=== PATIENT | female | born 1960 | race Caucasian/White ===

== ENCOUNTER 2017-06-02 11:31 | Observation (INO) | payer OTHER ==
[2017-05-17 11:50] VITALS: BMI 48.0
--- NOTE | 2017-05-17 12:45 | PAT Medication Instructions ---
Service Date May 17, 2017. Current Home Medication List Albuterol (Ventolin), 2 PUFFS INH PRN Calcium/Vitamin D (Os-Chris 250 With D *), 1 TAB PO QAM Cholecalciferol (Vitamin D 1000 Unit), 5,000 INTER.UNIT PO HS Cyanocobalamin (Cyanocobalamin), 1 DOSE INJ QMONTH Duloxetine Hcl (Cymbalta *), 90 MG PO HS Fluticasone Prop/Salmeterol (Advair Diskus 250/50 Mcg *), 1 PUFF INH BID Furosemide (Lasix *), 40 MG PO PRN PRN for leg swelling Hydrocodone/Acetaminophen 5MG/325MG ([place] 5MG/325MG), 2 TABLETS PO UD PRN for Pain Hydroxychloroquine Sulfate (Plaquenil), 200 MG PO BID Lisinopril (Zestril), 20 MG PO QAM Magnesium Oxide (Mag-Ox), 400 MG PO HS Metaxalone (Skelaxin), 800 MG PO TID PRN for Muscle Spasms Multivitamin (Multivitamin), 1 TAB PO QAM Omeprazole (Prilosec), 20 MG PO QAM Potassium Ext Rel (Klor-Con), 20 MEQ PO UD PRN for with lasix Ranitidine (Zantac), 150 MG PO QPM [Nasal [place]], 1 DOSE DEIDRA QAM Medication Instructions For Your Scheduled Surgery - Continue as directed: Cyanocobalamin (Cyanocobalamin), 1 DOSE INJ QMONTH - Hold the following medications the morning of surgery: Calcium/Vitamin D (Os-Chris 250 With D *), 1 TAB PO QAM Lisinopril (Zestril), 20 MG PO QAM Furosemide (Lasix *), 40 MG PO PRN PRN for leg swelling Potassium Ext Rel (Klor-Con), 20 MEQ PO UD PRN for with lasix Multivitamin (Multivitamin), 1 TAB PO QAM Metaxalone (Skelaxin), 800 MG PO TID PRN for Muscle Spasms - Take the following medications the morning of surgery with a sip of water OTHERWISE NOTHING TO EAT OR DRINK AFTER MIDNIGHT: Hydroxychloroquine Sulfate (Plaquenil), 200 MG PO BID Albuterol (Ventolin), 2 PUFFS INH PRN (use if needed; BRING TO HOSPITAL) [Nasal [place]], 1 DOSE DEIDRA QAM Omeprazole (Prilosec), 20 MG PO QAM Fluticasone Prop/Salmeterol (Advair Diskus 250/50 Mcg *), 1 PUFF INH BID Hydrocodone/Acetaminophen 5MG/325MG ([place] 5MG/325MG), 2 TABLETS PO UD PRN for Pain (may take if needed up to 4 hours prior to surgery if needed) - Take the following medications as scheduled the night before surgery: Hydroxychloroquine Sulfate (Plaquenil), 200 MG PO BID Albuterol (Ventolin), 2 PUFFS INH PRN Duloxetine Hcl (Cymbalta *), 90 MG PO HS Magnesium Oxide (Mag-Ox), 400 MG PO HS Ranitidine (Zantac), 150 MG PO QPM Metaxalone (Skelaxin), 800 MG PO TID PRN for Muscle Spasms Fluticasone Prop/Salmeterol (Advair Diskus 250/50 Mcg *), 1 PUFF INH BID Hydrocodone/Acetaminophen 5MG/325MG ([place] 5MG/325MG), 2 TABLETS PO UD PRN for Pain Cholecalciferol (Vitamin D 1000 Unit), 5,000 INTER.UNIT PO HS If you have any questions please call us at [phone] or [phone] or [phone]
[2017-05-17 13:24] LABS: BASO % 1.4 %; BASO ABS # 0.06 K/uL (0-0.2); COMPLETE YES; EOS % 4.8 %; HEMATOCRIT 41.8 % (37-47); LYMPH % 37.9 %; LYMPH ABS # 1.57 K/uL (1.2-3.4); MEAN CELL VOLUME 90.9 fL (80-100); MEAN CORPUSCULAR HEMOGLOBIN 30.7 pg (25-34); MEAN CORPUSCULAR HGB CONC 33.7 g/dl (32-36); MEAN PLATELET VOLUME 8.8 fL (7.4-10.4); MONO % 9.2 %; NEUT % 46.7 %; PLATELET COUNT 250 K/uL (130-400); WHITE BLOOD COUNT 4.14 K/uL (4.8-10.8)
[2017-05-17 13:41] LABS: URINE APPEARANCE CLEAR (CLEAR); URINE BILIRUBIN NEG (NEG); URINE COLOR YELLOW; URINE NITRITE NEG (NEG); URINE PH 6.5 (4.5-7.5); URINE SPECIFIC GRAVITY 1.013 (1.000-1.030); UROBILINOGEN NEG (NEG)
[2017-05-17 13:45] LABS: MANUAL MICROSCOPIC REQUIRED? NO; REVIEW REQ? NO
[2017-05-17 14:33] LABS: BUN/CREATININE RATIO 17.2 (10-20); CALCIUM 9.2 mg/dl (8.5-10.1); CREATININE 0.69 mg/dl (0.60-1.20); POTASSIUM 4.5 mmol/L (3.5-5.1)
[2017-06-02] VITALS (8 sets, daily range): BP systolic 115–147; BP diastolic 69–74; PULSE 86–101; TEMP 36.4–36.8; O2SAT 92–96; Ht 160 cm; Wt 120.9 kg
[~2017-06-02] VITALS: Ht 160 cm; Wt 120.9 kg
[~2017-06-02 11:31] MED LIST: ADVIN25050 INH; ALBUAER2 INH; CEFAZOLIN 3000 MG/65 ML D5W IV SCH; CHOL100027 PO; CYM60 PO; CYNI1000 INJ; HYDR-5688 PO; HYDR200T5 PO; LACTATED RINGER'S 1000ML 1,000 ML IV SCH; LISI-725 PO; LSX20 PO; MAGN400T6 PO; META1TAB22 PO; MULT-506 PO; NASAL SPRAY NAE; OMEP20CA59 PO; OSCD250 PO; POTA20TA16 PO; ZNTT/150 PO
[2017-06-02] MEDS ORDERED: MIDAZOLAM HCL 1 MG/ML 2ML VIAL ONE (13:13)
[2017-06-02] MEDS ORDERED: FENTANYL CITRATE INJ 50 MCG/1 ML 2 ML VIAL ONE (13:14)
--- NOTE | 2017-06-02 13:18 | History & Physical Bridge Note ---
H&P Re-Evaluation Bridge Note: I have examined the patient, reviewed the History & Physical and in the interval since the performance of the History & Physical I have noted the following changes of clinical significance: No changes noted
--- NOTE | 2017-06-02 13:19 | History and Physical ---
History & Physical Date Jun 02, 2017. Chief Complaint Left SI joint pain History of Present Illness The patient is a 56 year old female with complaints of Additional History Hepatic Disease: No Endocrine Disorder: No Kidney Disease: No Hypertension: Yes Heart Disease: No Bleeding Tendencies: No Infectious Diseases: No Allergies Coded Allergies: Cefuroxime (Verified Allergy, Intermediate, HALLUCINATIONS, 05/17/17) Codeine (Verified Adverse Reaction, Mild, NAUSEA AND VOMITING, 05/17/17) Eucalyptus Oil (Verified Adverse Reaction, Mild, NAUSEA AND VOMITING, ) Propoxyphene (Verified Adverse Reaction, Mild, NAUSEA AND VOMITING, 05/17/17 ) Home Medications Scheduled Albuterol (Ventolin), 2 PUFFS INH PRN Calcium/Vitamin D (Os-Chris 250 With D *), 1 TAB PO QAM Cholecalciferol (Vitamin D 1000 Unit), 5,000 INTER.UNIT PO HS Cyanocobalamin (Cyanocobalamin), 1 DOSE INJ QMONTH Duloxetine Hcl (Cymbalta *), 90 MG PO HS Fluticasone Prop/Salmeterol (Advair Diskus 250/50 Mcg *), 1 PUFF INH BID Hydroxychloroquine Sulfate (Plaquenil), 200 MG PO BID Lisinopril (Zestril), 20 MG PO QAM Magnesium Oxide (Mag-Ox), 400 MG PO HS Multivitamin (Multivitamin), 1 TAB PO QAM Omeprazole (Prilosec), 20 MG PO QAM Ranitidine (Zantac), 150 MG PO QPM [Nasal [place]], 1 DOSE DEIDRA QAM Scheduled PRN Furosemide (Lasix *), 40 MG PO PRN PRN for leg swelling Hydrocodone/Acetaminophen 5MG/325MG ([place] 5MG/325MG), 2 TABLETS PO UD PRN for Pain Metaxalone (Skelaxin), 800 MG PO TID PRN for Muscle Spasms Potassium Ext Rel (Klor-Con), 20 MEQ PO UD PRN for with lasix Physical Examination Skin: warm/dry, no rash Eyes: normal inspection, EOMI, sclerae normal ENT: normal ENT inspection, pharynx normal Head: normocephalic, atraumatic Neck: supple, no adenopathy, trachea midline Respiratory/Chest: lungs clear, normal breath sounds, no respiratory distress Cardiovascular: regular rate, rhythm, no edema, no murmur Abdomen / GI: normal bowel sounds, non tender Back: normal inspection Extremities: normal inspection, normal range of motion Neurologic/Psych: no motor/sensory deficits, alert, normal reflexes, oriented x 3 Diagnosis Left sacroiliitis Plan of Treatment Left SI joint fusion
[2017-06-02] MEDS ORDERED: BUPIVACAINE/EPINEPHRINE 0.5% MPF 1:200,000 10 ML VIAL ONE (13:37)
[2017-06-02] MEDS ORDERED: BACITRACIN 50000 UNIT VIAL ONE (13:37)
[2017-06-02] MEDS ORDERED: SODIUM CHLORIDE 0.9% PF 50 ML VIAL ONE (13:58)
[2017-06-02] MEDS ORDERED: HYDROmorphone INJ 2 MG/ML SYR/VIAL ONE ×2 (14:06→15:21)
[2017-06-02] MEDS ORDERED: EpHEDrine SULFATE 50MG/5ML SYR ONE (14:46)
[2017-06-02] MEDS ORDERED: LIDOCAINE HCL 2% 2 ML VIAL (20MG/ML) ONE (14:46)
[2017-06-02] MEDS ORDERED: GLYCOPYRROLATE INJ 0.2 MG/ML VIAL ONE (14:46)
[2017-06-02] MEDS ORDERED: NEOSTIGMINE METHYLSULFATE 1 MG/ML 10ML VIAL ONE (14:46)
[2017-06-02] MEDS ORDERED: ONDANSETRON INJ 2 MG/ML 2 ML VIAL ONE (14:46)
[2017-06-02] MEDS ORDERED: PROPOFOL IV EMULSION 10 MG/ML 20 ML VIAL IV ONE (14:46)
[2017-06-02] MEDS ORDERED: LARYING-O-JET KIT (LTA) ONE ×2 (14:46)
[2017-06-02] MEDS ORDERED: DEXAMETHASONE SOD INJ 4 MG/ML VIAL ONE (14:46)
[2017-06-02] MEDS ORDERED: PHENYLEPHRINE HCL INJ 10 MG/ML VIAL ONE (14:46)
[2017-06-02] MEDS ORDERED: ROCURONIUM BROMIDE 10 MG/ML 5 ML VIAL IV ONE (14:46)
--- NOTE | 2017-06-02 15:13 | DIAGNOSTIC IMAGING REPORT ---
Radiology [facility] CLINICAL HISTORY: 56 years-old Female presenting with LEFT SACROILIAC JOINT FUSION. TECHNIQUE: 3 fluoroscopic spot image(s) obtained as part of an intraoperative procedure. COMPARISON: None. FINDINGS/IMPRESSION: Fixation across the right sacroiliac joint and posterior bilateral transpedicular screw and nicol fixation spanning the lower lumbar spine likely into the upper sacrum noted. An interbody spacer is also present. Please see surgical report for further details. Fluoroscopy dosage (mGy): Not available. Fluoroscopy time: 2 minutes and 21 seconds.. Number of fluoroscopic spot images: 3. Electronically signed by: Kristopher Suarez M.D. 06/02/2017 3:12 PM Dictated Date/Time: 06/02/2017 3:11 PM
--- NOTE | 2017-06-02 15:14 | [facility] Operative Report ---
Operative Report Operative Date Jun 02, 2017. Pre-Operative Diagnosis Left Sacroiliitis Post-Operative Diagnosis Left Sacroiliitis Procedure(s) Performed Left Sacroiliac Joint Fusion Surgeon Dr. Vo Corporate Counselor Surgeon(s) none Estimated Blood Loss 20 cc Findings None Specimens none per surgeon Description of Procedure Patient was met with preoperatively case discussed all questions are dressed. After informed consent obtained patient was taken back to the operative suite and after undergoing intubation placed in a prone position on the Manuel table chest pads and hip bolsters. The left upper buttock lateral thigh was prepped and draped nostril fashion. With the assistance of fluoroscopy in AP and lateral planes we identified the left SI joint. A 3 cm incision was placed along the posterior slope of the sacrum along the left upper buttock. Sharp dissection was performed to the skin. Then using K wire verified our position the proximal aspect of the SI joint using inlet outlet and lateral views. The K wire was passed across the SI joint. We then dilated the tissue to allow passage of a slotted drill. We then drilled across the SI joint. We measured a 45 mm screw. A 45 mm DIAZ-coated slotted screw filled with Wendy and bone shavings was placed across the guidewire across the SI joint. After fixation used the operative guide to pass a second guidewire distal to the proximal screw. Again verifying our position and all views. Dilators were once again a used for the soft tissue. A 40 mm screw was measured. We drilled across the SI joint and placed a 40 mm DIAZ-coated screw slotted in filled with Wendy and local bone shavings. This also demonstrated excellent fixation. Using the operative guide I placed 1 last distal screw across SI joint. This screw measured a 35 mm screw was again filled with Wendy and local bone shavings. Again I appreciate excellent fixation into the bone. After this is completed incision was copiously irrigated closed with subcutaneous Vicryl and Monocryl for final skin closure. Sterile dressings placed. Patient we can take PACU stable condition. I attest to the content of the Intraoperative Record and any orders documented therein. Any exceptions are noted below.
[2017-06-02] MEDS ORDERED: ACETAMINOPHEN 325 MG TAB PO PRN (15:15)
[2017-06-02] MEDS ORDERED: LORAZEPAM 1 MG TAB PO PRN (15:15)
[2017-06-02] MEDS ORDERED: PHENYLEPHRINE 100MCG/ML 5ML SYR IV PRN (15:15)
[2017-06-02] MEDS ORDERED: ACETAMINOPHEN 500 MG TAB PO PRN (15:15)
[2017-06-02] MEDS ORDERED: ATROPINE SULFATE 0.1 MG/ML 5ML SYR IV PRN (15:15)
[2017-06-02] MEDS ORDERED: HYDROmorphone INJ 2 MG/ML SYR/VIAL IV PRN ×2 (15:15→18:15)
[2017-06-02] MEDS ORDERED: MAGNESIUM HYDROXIDE SUSP 30 ML UDC PO PRN (15:15)
[2017-06-02] MEDS ORDERED: ONDANSETRON INJ 2 MG/ML 2 ML VIAL IV PRN ×2 (15:15)
[2017-06-02] MEDS ORDERED: POTASSIUM CHLORIDE 20 MEQ TABCR PO PRN (15:15)
[2017-06-02] MEDS ORDERED: DO NOT ADMINISTER PNEUMOCOCCAL VACCINE PRN ×2 (15:15)
[2017-06-02] MEDS ORDERED: LORAZEPAM INJ 1 MG in SYRINGE 0 ML IV PRN (15:15)
[2017-06-02] MEDS ORDERED: DO NOT ADMINISTER FLU VACCINE PRN ×3 (15:15)
[2017-06-02] MEDS ORDERED: FUROSEMIDE 40 MG TAB PO PRN (15:15)
[2017-06-02] MEDS ORDERED: ALBUTEROL HFA 8 GM INHALER INH PRN (15:15)
[2017-06-02] MEDS ORDERED: EpHEDrine SULFATE INJ 50 MG/ML AMP IV PRN (15:15)
[2017-06-02] MEDS ORDERED: HYDROmorphone INJ 1 MG/ML SYR IV PRN (15:15)
[2017-06-02] MEDS ORDERED: IV FLUIDS COMPLETED PRN (15:45)
--- NOTE | 2017-06-02 16:01 | Anesthesiology Progress Note ---
Anesthesia Post Op Note Date & Time Jun 02, 2017 at 16:01 Vital Signs Pain Intensity: 5 Vital Signs Past 12 Hours Date Time Temp Pulse Resp B/P (MAP) Pulse Ox O2 Delivery O2 Flow Rate FiO2 06/02/17 15:55 36.4 90 16 120/84 93 Nasal Cannula 4 06/02/17 15:45 91 16 134/84 93 Nasal Cannula 4 06/02/17 15:35 87 16 134/80 92 Mask 10 06/02/17 15:25 92 16 133/89 92 Mask 10 06/02/17 15:17 36.5 100 16 157/97 97 Mask 10 06/02/17 12:18 36.8 86 20 141/71 95 Room Air Notes Mental Status: alert / awake / arousable, participated in evaluation Pt Amnestic to Procedure: Yes Nausea / Vomiting: adequately controlled Pain: adequately controlled Airway Patency, RR, SpO2: stable & adequate BP & HR: stable & adequate Hydration State: stable & adequate Anesthetic Complications: no major complications apparent
[2017-06-02] MEDS ORDERED: RXC5 PO (17:10)
--- NOTE | 2017-06-02 17:11 | Discharge Instructions ---
Discharge Instructions Date of Service Jun 02, 2017. Admission Reason for Admission: Sacroilitis Discharge Discharge Diagnosis / Problem: left sacralilitis Discharge Goals Goal(s): Decrease discomfort Activity Recommendations Activity Limitations: per Instructions/Follow-up section Weightbearing Status: Left toe touch . Instructions / Follow-Up Instructions / Follow-Up Please use walker when ambulating with toe-touch weightbearing to the left lower extremity. Dressing may be removed postop day 3. May shower using soap and water on the incision. Current Hospital Diet Patient's current hospital diet: Regular Diet Discharge Diet Recommended Diet: Regular Diet Procedures Procedures Performed: Left Sacroiliac Joint Fusion Pending Studies Studies pending at discharge: no Medical Emergencies . Who to Call and When: Medical Emergencies: If at any time you feel your situation is an emergency, please call 911 immediately. . Non-Emergent Contact Non-Emergency issues call your: Primary Care Provider . "Provider Documentation" section prepared by Ronnie Vo. . VTE Core Measure Inpt VTE Proph given/why not?: Brandin Rayo, [facility]
[2017-06-02] MEDS: SODIUM CHLORIDE 0.9% 1000ML 1,000 ML IV SCH (18:08)
[2017-06-02] MEDS: KETOROLAC TROMETHAMINE 30 MG/ML VIAL IV. SCH ×2 (19:51→23:41)
[2017-06-02] MEDS: CEFAZOLIN IV 3,000 MG in DEXTROSE 5% 50ML 50 ML IV SCH (19:52)
[2017-06-02] MEDS: HYDROXYCHLOROQUINE SULFATE 200 MG TAB PO SCH (20:08)
[2017-06-02] MEDS: DOCUSATE SODIUM 100 MG CAP PO SCH (20:08)
[2017-06-02] MEDS ORDERED: NURSING VERBAL MED ORDER ONE (20:15)
[2017-06-02] MEDS: FLUTICASONE/SALMETEROL 250/50 (ADVAIR) 14 PUFF/1 INHALER INH SCH (20:28)
[2017-06-02] MEDS ORDERED: MAGNESIUM OXIDE 400 MG TAB PO SCH (21:00)
[2017-06-02] MEDS ORDERED: DULOXETINE (CYMBALTA) 30 MG CAP PO SCH (21:00)
[2017-06-02] MEDS ORDERED: RANITIDINE HCL 150 MG TAB PO SCH (21:00)
[2017-06-02] MEDS ORDERED: LISINOPRIL 20 MG TAB PO SCH (21:00)
[2017-06-02] MEDS: OXYCODONE HCL IR 5 MG TAB (IMMEDIATE RELEASE) PO PRN (22:36)
[2017-06-03 03:51] VITALS: BP 116/75; PULSE 77; TEMP 36.5; O2SAT 91
[2017-06-03] MEDS: CEFAZOLIN IV 3,000 MG in DEXTROSE 5% 50ML 50 ML IV SCH ×2 (03:58→11:50)
[2017-06-03] MEDS: OXYCODONE HCL IR 5 MG TAB (IMMEDIATE RELEASE) PO PRN ×2 (04:01→13:52)
[2017-06-03] MEDS: SODIUM CHLORIDE 0.9% 1000ML 1,000 ML IV SCH (05:45)
[2017-06-03] MEDS: KETOROLAC TROMETHAMINE 30 MG/ML VIAL IV. SCH (05:45)
[2017-06-03 07:25] VITALS: BP 112/69; PULSE 81; TEMP 36.6; O2SAT 97
[2017-06-03] MEDS: FLUTICASONE/SALMETEROL 250/50 (ADVAIR) 14 PUFF/1 INHALER INH SCH (08:28)
[2017-06-03] MEDS: HYDROXYCHLOROQUINE SULFATE 200 MG TAB PO SCH (08:30)
[2017-06-03] MEDS: DOCUSATE SODIUM 100 MG CAP PO SCH (08:30)
[2017-06-03] MEDS ORDERED: PANTOprazole SOD 40 MG TAB PO SCH (09:00)
[2017-06-03] MEDS ORDERED: LISINOPRIL 20 MG TAB PO SCH (09:00)
--- NOTE | 2017-06-03 10:39 | Discharge Summary ---
Orthopedic Discharge Summary Admission Date/Reason Jun 02, 2017 at 15:10 Sacroilitis. Discharge Date/Disposition Jun 03, 2017 Home Diagnosis Principal Diagnosis: Left sacroiliitis Admission Physical Exam As per Admitting History & Physical. Hospital Course Patient underwent left SI joint fusion tolerated this well as taken to the orthopedic 4 postop we. Postop day #1 she was up with physical therapy under stowed instructions very well and was subsequently discharged home. Discharge orders and instructions found the chart for further review. Discharge Instructions Please refer to the electronic Patient Visit Report (Discharge Instructions) for additional information.
[2017-06-03 11:28] VITALS: BP 128/82; PULSE 77; TEMP 36.5; O2SAT 98
[2017-06-03 11:46] VITALS: BP 128/82; PULSE 77; TEMP 36.5; O2SAT 98
[2017-06-04] MEDS ORDERED: BISACODYL 5 MG TABEC PO PRN (06:00)
[2017-06-04] MEDS ORDERED: BISACODYL 10 MG SUPP PR PRN (06:00)
[2017-06-05] MEDS ORDERED: POLYETHYLENE (MIRALAX) 17 GM PACK PO SCH (09:00)
== END 2017-06-03 14:16 | disposition home or self-care (01) ==
LOC: C.ACU 11:31 → C.3E 15:10 → ENRESERV 15:44
PROVIDERS: ADMIT Orthopaedic Surgery Orthopaedic Surgery of the Spine; ATTEND Orthopaedic Surgery Orthopaedic Surgery of the Spine
DX: M46.1 Sacroiliitis, not elsewhere classified (principal)

== ENCOUNTER 2019-12-17 07:23 | Observation (INO) ==
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
--- NOTE | 2019-11-26 12:46 | PAT Medication Instructions ---
Medication Instructions Date of Service November 26, 2019 Home Medications albuterol sulfate 1 inh INHALATION QID PRN biotin 1 mg PO DAILY calcium carbonate-vitamin D3 [Calcium 600 + D(3)] 1 tab PO DAILY cetirizine [Zyrtec] 10 mg PO HS cholecalciferol (vitamin D3) [Vitamin D3] 125 mcg PO HS cyanocobalamin (vitamin B-12) 1,000 mcg IM MONTHLY diclofenac sodium [Voltaren] 2 g TOPICAL QID PRN dicyclomine 20 mg PO QID PRN duloxetine [Cymbalta] 60 mg PO QAM fluticasone propion-salmeterol [Advair Diskus] 1 inh INHALATION BID furosemide [Lasix] 40 mg PO DAILY PRN hydrocodone-acetaminophen 1 - 2 tab PO Q6H PRN lisdexamfetamine [Vyvanse] 60 mg PO QAM PRN magnesium 250 mg PO QAM meclizine 25 mg PO TID PRN metaxalone 800 mg PO TID PRN multivitamin 1 tab PO QAM pantoprazole [Protonix] 40 mg PO BID potassium chloride 20 meq PO QAM PRN propylene glycol [Systane Complete] 1 drp OPHTHALMIC (EYE) BID PRN topiramate [Topamax] 50 mg PO HS valsartan-hydrochlorothiazide 1 tab PO QAM zinc 50 mg PO QAM Allergy Shots 1 dose UD Continue as directed cyanocobalamin (vitamin B-12) 1,000 mcg IM MONTHLY Allergy Shots 1 dose UD STOP taking 24 hours before surgery diclofenac sodium [Voltaren] 2 g TOPICAL QID PRN DO NOT take the morning of surgery biotin 1 mg PO DAILY calcium carbonate-vitamin D3 [Calcium 600 + D(3)] 1 tab PO DAILY cyanocobalamin (vitamin B-12) 1,000 mcg IM MONTHLY dicyclomine 20 mg PO QID PRN furosemide [Lasix] 40 mg PO DAILY PRN lisdexamfetamine [Vyvanse] 60 mg PO QAM PRN magnesium 250 mg PO QAM metaxalone 800 mg PO TID PRN multivitamin 1 tab PO QAM potassium chloride 20 meq PO QAM PRN propylene glycol [Systane Complete] 1 drp OPHTHALMIC (EYE) BID PRN valsartan-hydrochlorothiazide 1 tab PO QAM zinc 50 mg PO QAM Take morning of surgery With a small sip of water, OTHERWISE NOTHING TO EAT OR DRINK AFTER MIDNIGHT: albuterol sulfate 1 inh INHALATION QID PRN (use if needed, and please bring with you to the hospital on the day of surgery) duloxetine [Cymbalta] 60 mg PO QAM fluticasone propion-salmeterol [Advair Diskus] 1 inh INHALATION BID hydrocodone-acetaminophen 1 - 2 tab PO Q6H PRN (if needed, may be taken up to four hours before surgery) meclizine 25 mg PO TID PRN (if needed) pantoprazole [Protonix] 40 mg PO BID propylene glycol [Systane Complete] 1 drp OPHTHALMIC (EYE) BID PRN (if needed) Take evening before surgery albuterol sulfate 1 inh INHALATION QID PRN (if needed) cetirizine [Zyrtec] 10 mg PO HS cholecalciferol (vitamin D3) [Vitamin D3] 125 mcg PO HS dicyclomine 20 mg PO QID PRN (if needed) fluticasone propion-salmeterol [Advair Diskus] 1 inh INHALATION BID furosemide [Lasix] 40 mg PO DAILY PRN (if needed) hydrocodone-acetaminophen 1 - 2 tab PO Q6H PRN (if needed) meclizine 25 mg PO TID PRN (if needed) metaxalone 800 mg PO TID PRN (if needed) pantoprazole [Protonix] 40 mg PO BID propylene glycol [Systane Complete] 1 drp OPHTHALMIC (EYE) BID PRN (if needed) topiramate [Topamax] 50 mg PO HS Other Notes If you have any questions please call us at [phone] or [phone] or [phone] or [phone]
[~2019-12-17 07:23] MED LIST changes: +ACETAMINOPHEN 500 MG TAB PO SCH; -ADVIN25050 INH; -ALBUAER2 INH; +CEFAZOLIN 2000MG 2,000 MG/15 ML SYR IV SCH; -CEFAZOLIN 3000 MG/65 ML D5W IV SCH; -CHOL100027 PO; -CYM60 PO; -CYNI1000 INJ; +CeleBREX 200 MG CAP PO SCH; +GABAPENTIN 600 MG DOSE PO SCH; -HYDR-5688 PO; -HYDR200T5 PO; -LACTATED RINGER'S 1000ML 1,000 ML IV SCH; -LISI-725 PO; +LR 15ML/HR IV SCH; -LSX20 PO; -MAGN400T6 PO; -META1TAB22 PO; -MULT-506 PO; -NASAL SPRAY NAE; -OMEP20CA59 PO; -OSCD250 PO; -POTA20TA16 PO; -ZNTT/150 PO
[2019-12-17 08:14] LABS: Appearance Urine Clear (Clear); Bilirubin Urine Negative (Negative); Blood Urine Trace (Negative); Color Urine Yellow; Glucose Urine UA Negative (Negative); Ketones Urine Trace (Negative); Leukocyte Esterase Urine 1+ (Negative); Nitrite Urine Negative (Negative); Protein Urine Negative (Negative); Specific Gravity Urine 1.015 (1.000-1.030); Urobilinogen Urine Negative (Negative)
[2019-12-17 08:29] LABS: Bacteria Urine Negative (Negative); Epithelial Cell Urine >30 /lpf (0-5); Hyaline Casts Urine 0-5 /lpf (0-5); RBC Urine 0-4 /hpf (0-4); WBC Urine 0-5 /hpf (0-5)
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
--- NOTE | 2019-12-17 09:15 | History & Physical Bridge Note ---
Date of Service December 17, 2019 History & Physical Bridge Note I have examined the patient, reviewed the History & Physical and in the interval since the performance of the History & Physical I have noted the following changes of clinical significance: no changes noted
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
[2019-12-17] MEDS ORDERED: BUPIVACAINE/EPINEPHRINE 0.25% 1:200,000 30 ML VIAL ONE (09:32)
[2019-12-17] MEDS ORDERED: BACITRACIN INJ 50,000 UNIT VIAL ONE (09:32)
[2019-12-17] MEDS ORDERED: MIDAZOLAM HCL 1 MG/ML 2ML VIAL ONE (09:33)
[2019-12-17] MEDS ORDERED: fentaNYL citrate 100 MCG/2 ML VIAL ONE ×3 (09:33→11:38)
[2019-12-17] MEDS ORDERED: CEFAZOLIN 250 MG/ML 1 GM VIAL ONE (10:28)
[2019-12-17] MEDS ORDERED: FLOSEAL HEMOSTATIC MATRIX 10ML TOP ONE (10:34)
[2019-12-17] MEDS ORDERED: PROPOFOL IV EMULSION 10 MG/ML 20 ML VIAL IV ONE ×2 (10:39→11:14)
[2019-12-17] MEDS ORDERED: ONDANSETRON INJ 2 MG/ML 2 ML VIAL ONE ×2 (10:39→11:14)
[2019-12-17] MEDS ORDERED: ROCURONIUM BROMIDE 10 MG/ML 5 ML VIAL ONE (10:40)
--- NOTE | 2019-12-17 10:58 | Operative Report ---
Post Operative Report Pre & Post Diagnosis Operation Date: 12/17/19 09:35 Pre-Op Diagnosis: Sacroiliac joint dysfunction Post-Op Diagnosis: Sacroiliac joint dysfunction I identified the patient and participated in the time-out.: Yes Procedure Operation Date: 12/17/19 09:35 Actual Procedures #1 open right SI joint fusion. #2 placement of 20 mm bony allograft filled with infuse collagen sponge within the right SI joint. #3 placement of 2 percutaneous globus DIAZ-coated slotted screws across the right SI joint. Surgeon Ronnie Vo, DO Baffle Installer None Estimated Blood Loss 50 Findings See Below The patient is 5 foot 2 inches tall weighing over 121 kg with a BMI in excess of 48. The patient's body habitus did add significant technical difficulty throughout the procedure adding at least 50% increase in operative time. This included patient positioning adequate visualization and exposure. We will also add to increased difficulties with follow-up and management. Specimens None Indications This is a 59-year-old female well-known to me the presents above-mentioned diagnosis after failing extensive course of nonoperative care is here for surgical intervention. Description of Procedure Patient was met with identified informed consent obtained. Patient was then taken to the operative suite underwent intubation placed in prone position the chest padded bolsters. All bony prominences well-padded eyes inspected to ensure no external pressure placed upon the. This point the right upper buttock was prepped and draped in normal sterile fashion. With the assistance of fluoroscopy identified the right SI joint created a 3 cm incision directly overlying his region. Sharp dissection was performed down to and exposing the joint. I then placed a joint finder within the joint tapping in the position verifying position with fluoroscopy. I then drilled and curetted out the joint and by way of a cannula placed a 20 mm cortical allograft filled with infuse collagen sponge directly within the joint. Then placed a second incision along the right upper buttock in line with the posterior sacral slope. Again it is approximately 3 cm in length. A guidewire was then placed through the incision across the proximal portion of the SI joint verifying our position with inlet outlet views as well as lateral views. I then placed cannulas over the guidewire and drilled a 10 mm drill across the SI joint. Then placed a 50 mm DIAZ-coated slotted screw filled with infuse collagen sponge and local autograft across the joint. An outrigger guide was placed over the guidewire and a second distal screw this time 45 mm in length again DIAZ-coated slotted filled with local autograft and infuse collagen sponge was placed across the SI joint. The guidewires were removed the incision was copiously irrigated and closed with subcutaneous Vicryl and 4 Monocryl for final skin closure. Steri-Strip sterile dressing was placed. Patient will continue to PACU stable condition. I attest to the content of the Intraoperative Record and any orders documented therein. Any exceptions are noted below.
[2019-12-17] MEDS ORDERED: DO NOT ADMINISTER FLU VACCINE PRN (11:11)
[2019-12-17] MEDS ORDERED: LORazepam 1 MG/2 ML VIAL IV PRN (11:11)
[2019-12-17] MEDS ORDERED: MAGNESIUM HYDROXIDE SUSP 30 ML UDC PO PRN (11:11)
[2019-12-17] MEDS ORDERED: LORazepam 1 MG TAB PO PRN (11:11)
[2019-12-17] MEDS ORDERED: DO NOT ADMINISTER PNEUMOCOCCAL VACCINE PRN (11:11)
[2019-12-17] MEDS ORDERED: NEOSTIGMINE METHYLSULFATE 1 MG/ML 10ML VIAL ONE (11:14)
[2019-12-17] MEDS ORDERED: GLYCOPYRROLATE 0.2 MG/ML VIAL ONE (11:14)
[2019-12-17] MEDS ORDERED: LIDOCAINE HCL 2% 2 ML VIAL/AMP(20MG/ML) INFIL ONE (11:14)
[2019-12-17] MEDS ORDERED: DEXAMETHASONE SOD INJ 4 MG/ML VIAL ONE (11:14)
[2019-12-17] MEDS ORDERED: ATROPINE SULFATE 0.1 MG/ML 10ML SYR IV PRN (11:35)
[2019-12-17] MEDS ORDERED: ONDANSETRON INJ 2 MG/ML 2 ML VIAL IV PRN (11:35)
[2019-12-17] MEDS ORDERED: LABETALOL HCL IV 5 MG/ML 20ML IV PRN (11:35)
[2019-12-17] MEDS ORDERED: PROMETHAZINE HCL 12.5 MG in SODIUM CHLORIDE 0.9% 50 ML IV PRN (11:35)
[2019-12-17] MEDS ORDERED: FLUMAZENIL 0.1 MG/1 ML 10 ML VIAL IV PRN (11:35)
[2019-12-17] MEDS ORDERED: NALOXONE HCL 0.4 MG/1 ML VIAL/CARP IV PRN (11:35)
[2019-12-17] MEDS ORDERED: ePHEDrine sulfate 50 MG/ML AMP IV PRN (11:35)
[2019-12-17] MEDS ORDERED: HYDROmorphone INJ 1 MG/ML SYRINGE ONE (11:44)
[2019-12-17] MEDS: HYDROmorphone INJ 1 MG/ML SYRINGE IV PRN ×4 (11:44→23:54)
--- NOTE | 2019-12-17 11:45 | Fluoroscopy Report ---
FL pelvis 1-2V CLINICAL HISTORY: RIGHT SI JT FUSION COMPARISON STUDY: None. FLUOROSCOPY TIME: 1 minute and 41 seconds. FINDINGS: 4 fluoroscopic spot images of the right sacroiliac joint were submitted. There are 2 screws fusing the right sacroiliac joint. The hardware appears intact. IMPRESSION: Fluoroscopy provided for right sacroiliac joint fusion. ACT 112: Negative or not required by law. Electronically signed by: Micheal Sparks M.D. 12/17/2019 11:44 AM
--- NOTE | 2019-12-17 12:10 | Anesthesiology Progress Note ---
Date of Service December 17, 2019 Anesthesia Post Procedure Vital Signs Vital Signs: Temp Pulse Pulse Resp BP Pulse Ox 12/17/19 12:05 90 16 105/63 94 12/17/19 11:55 36.8 C 87 18 104/41 L 97 12/17/19 11:45 87 14 122/54 L 98 12/17/19 11:35 89 16 108/50 L 98 12/17/19 11:25 90 16 121/73 97 12/17/19 11:15 91 H 20 140/68 96 12/17/19 11:07 36.5 C 94 H 18 154/83 H 95 12/17/19 08:17 36.8 C 101 H 20 130/87 95 Pain Intensity Generalized: Pain Intensity: 7 Right Lower Back: Pain Intensity: 4 Transfer of Care Handoff Completed per policy Notes Mental Status: alert / awake / arousable Patient Amnestic to Procedure: Yes Nausea / Vomiting: adequately controlled Pain: adequately controlled Airway Patency, RR, SpO2: stable & adequate BP & HR: stable & adequate Hydration State: stable & adequate Anesthetic Complications: no major complications apparent
[2019-12-17] MEDS ORDERED: ALBUTEROL HFA 8 GM INHALER INH PRN (13:04)
[2019-12-17] MEDS ORDERED: MECLIZINE HCL 25 MG TAB PO PRN (13:17)
[2019-12-17] MEDS ORDERED: ARTIFICIAL TEARS OP PRN (13:20)
[2019-12-17] MEDS ORDERED: POTASSIUM CHLORIDE 20 MEQ TABCR PO PRN (13:30)
[2019-12-17] MEDS ORDERED: FUROSEMIDE 40 MG TAB PO PRN (13:30)
[2019-12-17] MEDS: SODIUM CHLORIDE 0.9% 1000ML 1,000 ML IV SCH (13:43)
[2019-12-17] MEDS: HYDROCODONE/ACETAMOPHEN 5/325MG TAB PO PRN ×2 (17:41→21:54)
[2019-12-17] MEDS: CEFAZOLIN 2000MG 2,000 MG/15 ML SYR IV SCH (17:42)
[2019-12-17] MEDS: DICYCLOMINE HCL 20 MG TAB PO PRN (20:43)
[2019-12-17] MEDS: DOCUSATE SODIUM 100 MG CAP PO SCH (21:41)
[2019-12-17] MEDS: PANTOprazole 40 MG TAB PO SCH (21:47)
[2019-12-17] MEDS: CETIRIZINE HCL 10 MG TABLET PO SCH (21:48)
[2019-12-18] MEDS: SODIUM CHLORIDE 0.9% 1000ML 1,000 ML IV SCH ×2 (00:48→02:51)
[2019-12-18] MEDS: CEFAZOLIN 2000MG 2,000 MG/15 ML SYR IV SCH ×2 (00:48→09:27)
[2019-12-18] MEDS ORDERED: VALSARTAN/HCTZ 160/12.5MG TAB PO SCH (09:00)
[2019-12-18] MEDS ORDERED: NON-FORMULARY MEDICATION (Zinc 50 MG) PO SCH (09:00)
[2019-12-18] MEDS: FLUTICASONE/VILANTEROL 200/25MCG 14 PUFFS/INHALER INH SCH (09:11)
[2019-12-18] MEDS: DOCUSATE SODIUM 100 MG CAP PO SCH ×2 (09:12→21:02)
[2019-12-18] MEDS: CALCIUM 600MG + VIT D 400 IU TAB PO SCH (09:12)
[2019-12-18] MEDS: DULOXETINE HCL 60 MG CAP PO SCH (09:13)
[2019-12-18] MEDS: PANTOprazole 40 MG TAB PO SCH ×2 (09:14→21:03)
[2019-12-18] MEDS: MULTIVITAMIN TAB PO SCH (09:14)
[2019-12-18] MEDS: MAGNESIUM OXIDE 400 MG TAB PO SCH (09:14)
[2019-12-18] MEDS: hydroCHLOROthiazide 25 MG TAB PO SCH (09:14)
[2019-12-18] MEDS: HYDROCODONE/ACETAMOPHEN 5/325MG TAB PO PRN (09:15)
[2019-12-18] MEDS: METAXALONE 800 MG TABLET PO PRN (09:18)
[2019-12-18] MEDS: VALSARTAN 80 MG TAB PO SCH (09:49)
[2019-12-18] MEDS ORDERED: DEXAMETHASONE SOD PHOSPHATE 8 MG in SYRINGE 0 ML IV ONE (11:15)
[2019-12-18] MEDS: HYDROmorphone INJ 1 MG/ML SYRINGE IV PRN ×2 (11:24→22:07)
--- NOTE | 2019-12-18 13:01 | Orthopedic Progress Note ---
Date of Service December 18, 2019 Assessment & Plan (1) Sacroiliitis: At this time we will give her a short course of steroids to continue with physical therapy hopefully discharge home tomorrow. Present on Admission?: Yes Admission and Anticipated Discharge Date Admission Date: December 17, 2019 Subjective Patient is experiencing some right sciatica last evening. It seems to be somewhat improved but still limited in nature. Physical Exam Physical Exam: On exam she does have reasonable strength testing. She has some tenderness palpation of the right trochanteric region. No pain over the SI joint. Results & Data ([facility]) Vital Signs (Past 12 Hours) Vital Signs Temp Pulse Pulse Resp BP Pulse Ox 12/18/19 11:58 36.5 C 85 19 148/80 H 96 12/18/19 08:19 36.5 C 81 19 140/78 95 12/18/19 02:49 36.5 C 72 18 140/85 95
[2019-12-18] MEDS: DICYCLOMINE HCL 20 MG TAB PO PRN (17:18)
[2019-12-18] MEDS: CETIRIZINE HCL 10 MG TABLET PO SCH (21:03)
[2019-12-19] MEDS ORDERED: bisacodyL 5 MG TABEC PO PRN (06:00)
[2019-12-19] MEDS: METAXALONE 800 MG TABLET PO PRN (07:16)
--- NOTE | 2019-12-19 07:53 | Discharge Summary ---
Date of Service December 19, 2019 Admission HPI Per Admitting Provider This is a 59-year-old female known to the presents with chronic persistent sacroiliitis. After failing extensive course of nonoperative care she is here for surgical intervention. Principal Diagnosis Sacroiliitis Discharge Data Allergies Allergy/AdvReac Type Severity Reaction Status Date / Time cat dander AdvReac Intermediate ALLERGY Verified 12/17/19 08:07 SHOTS FOR cefuroxime AdvReac Intermediate HALLUCINATI Verified 12/17/19 08:07 ONS dog dander AdvReac Intermediate ALLERGY Verified 12/17/19 08:07 SHOTS FOR codeine AdvReac Mild NAUSEA AND Verified 12/17/19 08:07 VOMITING eucalyptus AdvReac Mild NAUSEA AND Verified 12/17/19 08:07 VOMITING propoxyphene AdvReac Mild (Darvon) Verified 12/17/19 08:07 NAUSEA AND VOMITING Procedures Performed Operation Date: 12/17/19 09:35 Actual Procedures p Right Sacroiliac Joint Fusion, application of infuse(Right) - Ronnie Vo DO Ordered Studies 12/17/19 07:00 FL fluoroscopy <1hr Routine FL pelvis 1-2V Routine Hospital Course (1) Sacroiliitis: Patient underwent right SI joint fusion tolerated well second orthopedic for postoperative postop day #1 she was started experiencing some sciatica. Postop day or 2 this is markedly improved she was ambulating much better and was subsequently discharged home. Discharge orders instructions from the chart for further review. Total Time Total Time Spent Total Time Spent (In Minutes): 20 minutes Discharge Plan Discharge Items Patient Disposition: Home - Self-Care Reason For Visit: SI JOINT DYSFUNCTION Discharge Diagnosis: Sacroiliitis Activity: Per Instructions section Lifting: No more than 10 pounds Bathing: May shower/bathe in 3 days Driving/Machine Use: Resume 3 days after discharge Non-emergency contact: Primary Care Provider Call non-emergency contact if: you have any medication questions Follow-up/Referrals: Cristin Nevarez DO [Primary Care Provider] - Diet: Regular Addtl Attending Provider Instructions: Maintain strict toe-touch weightbearing to the right lower extremity. Follow-up in 2 weeks as scheduled. Pending Studies at Discharge: No Stand-Alone Forms: [employer], Smoking Cessation Medications and DC Order Prescriptions: New oxycodone 5 mg tablet 5 mg PO Q6H PRN (Reason: pain, severe) Qty: 10 RF: 0 Continued multivitamin Tablet 1 tab PO QAM RF: 0 furosemide [Lasix] 40 mg Tablet 40 mg PO DAILY PRN (Reason: Edema) RF: 0 fluticasone propion-salmeterol [Advair Diskus] 250-50 mcg/dose Blister With Device 1 inh INHALATION BID RF: 0 cetirizine [Zyrtec] 10 mg Tablet 10 mg PO HS RF: 0 hydrocodone-acetaminophen 5-325 mg Tablet 1 - 2 tab PO Q6H PRN (Reason: Pain) RF: 0 valsartan-hydrochlorothiazide 160-12.5 mg Tablet 1 tab PO QAM RF: 0 dicyclomine 20 mg Tablet 20 mg PO QID PRN (Reason: stomach pain) RF: 0 meclizine 25 mg Tablet 25 mg PO TID PRN (Reason: Vertigo) RF: 0 pantoprazole [Protonix] 40 mg Tablet,Delayed Release (Dr/Ec) 40 mg PO BID RF: 0 zinc 50 mg Tablet 50 mg PO QAM RF: 0 magnesium 250 mg Tablet 250 mg PO QAM RF: 0 metaxalone 800 mg Tablet 800 mg PO TID PRN (Reason: muscle spasms) RF: 0 duloxetine [Cymbalta] 60 mg Capsule,Delayed Release(Dr/Ec) 60 mg PO QAM RF: 0 biotin 1 mg Tablet 1 mg PO DAILY RF: 0 calcium carbonate-vitamin D3 [Calcium 600 + D(3)] 600 mg(1,500mg) -400 unit Tablet 1 tab PO DAILY RF: 0 diclofenac sodium [Voltaren] 1 % Gel 2 g TOPICAL QID PRN (Reason: Pain) RF: 0 Vyvanse 60 mg Capsule 60 mg PO QAM PRN (Reason: Fatigue) RF: 0 cholecalciferol (vitamin D3) [Vitamin D3] 125 mcg (5,000 unit) Tablet 125 mcg PO HS RF: 0 Systane Complete 0.6 % Drops 1 drp OPHTHALMIC (EYE) BID PRN (Reason: Dry Eye(S)) RF: 0 cyanocobalamin (vitamin B-12) 1,000 mcg/mL Kit 1,000 mcg IM MONTHLY RF: 0 potassium chloride 20 mEq Tablet Extended Release 20 meq PO QAM PRN (Reason: with lasix) RF: 0 albuterol sulfate 90 mcg/actuation Aero Powdr Breath Act W/Sensor 1 inh INHALATION QID PRN (Reason: sob) RF: 0 Allergy Shots 1 dose UD RF: 0 Discharge Orders: Discharge Order (Routine); Ordered 12/19/19 Ordered By: Ronnie Vo Admission Data Admit Date/Time: 12/17/19 11:11 Attending Provider: Ronnie Vo Admit Provider: Ronnie Vo Primary Care Provider: Cristin Nevarez
[2019-12-19] MEDS ORDERED: DEXAMETHASONE SOD PHOSPHATE 8 MG in SYRINGE 0 ML IV ONE (08:15)
[2019-12-19] MEDS: FLUTICASONE/VILANTEROL 200/25MCG 14 PUFFS/INHALER INH SCH (08:33)
[2019-12-19] MEDS: MULTIVITAMIN TAB PO SCH (08:34)
[2019-12-19] MEDS: PANTOprazole 40 MG TAB PO SCH (08:34)
[2019-12-19] MEDS: DOCUSATE SODIUM 100 MG CAP PO SCH (08:34)
[2019-12-19] MEDS: CALCIUM 600MG + VIT D 400 IU TAB PO SCH (08:34)
[2019-12-19] MEDS: hydroCHLOROthiazide 25 MG TAB PO SCH (08:34)
[2019-12-19] MEDS: VALSARTAN 80 MG TAB PO SCH (08:34)
[2019-12-19] MEDS: DULOXETINE HCL 60 MG CAP PO SCH (08:35)
[2019-12-19] MEDS: MAGNESIUM OXIDE 400 MG TAB PO SCH (08:35)
[2019-12-19] MEDS ORDERED: POLYETHYLENE (MIRALAX) 17 GM PACK PO SCH (11:00)
[2019-12-19] MEDS: HYDROmorphone INJ 1 MG/ML SYRINGE IV PRN (16:58)
[2019-12-20] MEDS ORDERED: CYANOCOBALAMIN 1000 MCG/ML VIAL IM ONE (09:00)
== END 2019-12-19 17:36 | disposition home or self-care (01) ==
LOC: ASU 07:23 → 3E 07:23